=== PATIENT | male | born 1965 | race Native Hawaiian/Other Pacific Islander ===

== ENCOUNTER 2017-02-28 10:54 | Emergency (ER) | payer OTHER ==
[~2017-02-28] VITALS: Ht 188 cm; Wt 108.9 kg
[2017-02-28 11:04] VITALS: TEMP 98
[2017-02-28 13:27] VITALS: BP 132/87
== END 2017-02-28 13:28 | disposition home or self-care (01) ==
LOC: ED 10:54
DX: K59.00 Constipation, unspecified (principal)
CPT/HCPCS: 81000; 99283